=== PATIENT | female | born 1940 | race Caucasian/White ===

== ENCOUNTER 2017-03-24 13:06 | Outpatient (CLI) | payer MEDICARE ==
--- NOTE | 2017-03-24 15:07 | XRay Report ---
XRAY RIGHT SHOULDER THREE VIEWS: 03/24/17 13:06:00 CLINICAL: Right shoulder pain. FINDINGS: Normal glenohumeral alignment. Mild glenohumeral joint arthritis with a small inferior osteophyte. Normal AC joint. No fracture or dislocation. No bone lesion. Normal soft tissues. IMPRESSION: Mild glenohumeral joint arthritis.
== END 2017-03-24 13:07 | disposition home or self-care (01) ==
LOC: SPVIMAG 13:06
PROVIDERS: ATTEND Orthopaedic Surgery Sports Medicine
DX: M19.011 Primary osteoarthritis, right shoulder (principal)